=== PATIENT | male | born 1990 | race Caucasian/White ===

== ENCOUNTER 2018-05-19 08:58 | Emergency (ER) | payer OTHER ==
--- NOTE | 2018-05-19 09:18 | ED Physician Documentation ---
PD HPI NVD - Stated complaint Stated Complaint: VOMITING - Chief complaint Chief Complaint: Abd Pain - History obtained from History obtained from: Patient - History of Present Illness Timing - onset: Last night Review of Systems Constitutional: reports: Myalgias. denies: Fever, Chills Eyes: denies: Loss of vision, Decreased vision Nose: denies: Rhinorrhea / runny nose, Congestion Throat: denies: Oral lesions / sores, Sore throat PD PAST MEDICAL HISTORY - Past Medical History Cardiovascular: None Respiratory: None Neuro: None - Present Medications Home Medications: Ambulatory Orders Medication Instructions Recorded Confirmed Naproxen 375 mg PO BID #20 tablet 05/19/18 Ondansetron Odt [Zofran] 4 mg TL Q6H PRN #15 tablet 05/19/18 - Allergies Allergies/Adverse Reactions: Allergies Allergy/AdvReac Type Severity Reaction Status Date / Time No Known Drug Allergies Allergy Verified 05/19/18 09:11 - Family History Family history: reports: None - Immunizations Immunizations are current?: Yes Immunizations: TDAP current <10years PD ED PE NORMAL - Vitals Vital signs reviewed: Yes - General General: Alert and oriented X 3, No acute distress, Well developed/nourished - Extremities Extremities: Other (left DIP join) - Neuro Neuro: Alert and oriented X 3, flat polisher 2-12 intact, No motor deficit, No sensory deficit Eye Opening: Spontaneous Motor: Obeys Commands Verbal: Oriented GCS Score: 15 Results - Vitals Vitals: Oxygen O2 Source Room air PD MEDICAL DECISION MAKING - ED course Complexity details: re-evaluated patient (feeling much better with fluids and meds. ), considered differential (holding emesis bag and feeling nauseated still. ), d/w patient - Sepsis Event Vital Signs: Oxygen O2 Source Room air Departure - Departure Disposition: Home, Self Care Clinical Impression: Nausea vomiting and diarrhea, Dehydration Condition: Stable Record reviewed to determine appropriate education?: Yes Instructions: ED Nausea Vomiting Follow-Up: [facility] [Provider Group] Prescriptions: Naproxen 375 mg PO BID #20 tablet Ondansetron Odt [Zofran] 4 mg TL Q6H PRN #15 tablet PRN Reason: Nausea / Vomiting Comments: Abrupt nausea vomiting diarrhea like this typically area the food poisoning related or more commonly brief viral illness in the intestinal tract. Commonly they last a day or 2. Small frequent fluids and bland food today. Ondansetron if needed for nausea. Naproxen if needed for pains. Recheck if not better over the next day or 2. Forms: Activity restrictions Discharge Date/Time: 05/19/18 11:40
[2018-05-19] MEDS ORDERED: ONDANSETRON 4 MG/2 ML VIAL IVP STA (09:47)
[2018-05-19] MEDS ORDERED: KETOROLAC 60 MG/2 ML VIAL IVP STA (09:47)
[2018-05-19] MEDS ORDERED: FAMOTIDINE 20 MG/2 ML VIAL IVP STA (09:47)
[2018-05-19] MEDS ORDERED: SODIUM CHLORIDE 0.9% 1,000 ML IV ONE (09:47)
[2018-05-19 11:00] VITALS: BP 140/87
== END 2018-05-19 11:40 | disposition home or self-care (01) ==
LOC: ED 08:58
DX: R11.2 Nausea with vomiting, unspecified (principal); R19.7 Diarrhea, unspecified; E86.0 Dehydration
CPT/HCPCS: 96374; 96375; 99282; 99283

== ENCOUNTER 2018-08-09 08:15 | Emergency (ER) | payer OTHER ==
[2018-08-09 08:43] VITALS: BP 152/98
--- NOTE | 2018-08-09 09:00 | ED Physician Documentation ---
History of Present Illness - Stated complaint Stated Complaint: LEG NUMBNESS - Chief complaint Chief Complaint: General - History obtained from History obtained from: Patient - History of Present Illness Timing: Yesterday - Additonal information Additional information: 28-year-old male who had a coughing paroxysm yesterday that was quite hard developed acute pain in his right groin followed by numbness in the right anterior thigh and this extended down to the knee. He denies any numbness or tingling in his perineum he denies any difficulty with bowel or bladder. He has had stiff back before he does not believe this is related to the back at all. He does have coughing that happens periodically related to allergy or congestion. He is not having current URI symptoms. He states that he had a hard cough but because this pain the pain now is resolved he does not feel mass in the groin. Review of Systems Constitutional: denies: Fever Eyes: denies: Decreased vision Ears: denies: Ear pain Nose: denies: Congestion Throat: denies: Sore throat Cardiac: denies: Chest pain / pressure, Palpitations Respiratory: denies: Dyspnea, Cough GI: denies: Abdominal Pain, Nausea, Vomiting : denies: Dysuria, Frequency Skin: denies: Rash Musculoskeletal: reports: Extremity pain. denies: Neck pain, Back pain Neurologic: reports: Numbness (resolved). denies: Generalized weakness, Focal weakness PD PAST MEDICAL HISTORY - Past Medical History Cardiovascular: None Respiratory: None Neuro: None - Present Medications Home Medications: Ambulatory Orders Medication Instructions Recorded Confirmed Naproxen 375 mg PO BID #20 tablet 05/19/18 Ondansetron Odt [Zofran] 4 mg TL Q6H PRN #15 tablet 05/19/18 - Allergies Allergies/Adverse Reactions: Allergies Allergy/AdvReac Type Severity Reaction Status Date / Time No Known Drug Allergies Allergy Verified 05/19/18 09:11 - Immunizations Immunizations are current?: Yes Immunizations: TDAP current <10years PD ED PE NORMAL - Vitals Vital signs reviewed: Yes - General General: Alert and oriented X 3, No acute distress, Well developed/nourished - HEENT HEENT: Atraumatic, PERRL, EOMI, Ears normal, Moist mucous membranes, Pharynx benign, Dentition benign - Neck Neck: Supple, no meningeal sign, No bony TTP - Cardiac Cardiac: RRR, No murmur - Respiratory Respiratory: No respiratory distress, Clear bilaterally - Abdomen Abdomen: Soft, Non tender, Other (There is no hernia mass or tenderness this morning.) - Back Back: No CVA TTP, No spinal TTP - Derm Derm: Normal color, Warm and dry, No rash - Extremities Extremities: No deformity, No edema - Neuro Neuro: Alert and oriented X 3, football scout 2-12 intact, No motor deficit, No sensory deficit, Normal speech Eye Opening: Spontaneous Motor: Obeys Commands Verbal: Oriented GCS Score: 15 - Psych Psych: Normal mood, Normal affect Results - Vitals Vitals: Vital Signs - 24 hr 08/09/18 08:31 Temperature 36 C L Heart Rate 90 Respiratory 18 Rate Blood Pressure 152/98 H O2 Saturation 97 Oxygen O2 Source Room air PD MEDICAL DECISION MAKING - ED course Complexity details: reviewed results, considered differential, d/w patient ED course: 28-year-old male with a coughing paroxysm and what sounds like inguinal hernia strain that resulted in transient right leg symptoms has resolved his symptoms has no symptoms this morning and exam is unremarkable. I discussed with the patient the course of the femoral nerve and the signs and symptoms of incarceration of hernia and have asked him to follow-up with a surgeon should he have continued episodes of hernia pain or develops incarceration. Departure - Departure Disposition: 01 Home, Self Care Clinical Impression: Inguinal hernia Qualifiers: Obstruction and gangrene presence: without obstruction or gangrene Laterality: unilateral Recurrence: non-recurrent Qualified Code(s): K40.90 - Unilateral inguinal hernia, without obstruction or gangrene, not specified as recurrent Condition: Stable Instructions: ED Hernia Inguinal Follow-Up: [facility] [Provider Group]
== END 2018-08-09 09:12 | disposition home or self-care (01) ==
LOC: ED 08:15
DX: K40.90 Unilateral inguinal hernia, without obstruction or gangrene, not specified as recurrent (principal)
CPT/HCPCS: 99281; 99282

== ENCOUNTER 2018-12-30 21:47 | Emergency (ER) | payer OTHER ==
[2018-12-30 22:04] VITALS: BP 129/89
--- NOTE | 2018-12-30 22:04 | ED Physician Documentation ---
PD HPI LOWER EXT INJURY - Stated complaint Stated Complaint: RT FOOT PX - History obtained from History obtained from: Patient - History of Present Illness PD HPI LOW EXT INJURY LOCATION: Right, Foot Type of injury: Other (He has had couple of days of increasing localized pain and tenderness in the plantar aspect of the foot near the metatarsal heads. There is some slight redness and swelling to it today. It was tender enough to have difficulty walking on. He is not aware of an acute injury. He states [place] the [place] barefoot but was not aware of a foreign body at the time. He has not had any prior similar episodes.). No: Blunt / blow Timing - onset: How many days ago (Few) Timing - details: Gradual onset, Still present Worsened by: Palpating, Other (pressure of walking) Associated symptoms: Swelling (localized at the tender area). No: Tingling Similar symptoms before: Has not had sx before Recently seen: Not recently seen Review of Systems Constitutional: denies: Fever, Chills Neurologic: denies: Focal weakness, Numbness PD PAST MEDICAL HISTORY - Past Medical History Cardiovascular: None Respiratory: None Neuro: None - Past Surgical History Past Surgical History: No - Present Medications Home Medications: Ambulatory Orders Medication Instructions Recorded Confirmed Naproxen 375 mg PO BID #20 tablet 05/19/18 Ondansetron Odt [Zofran] 4 mg TL Q6H PRN #15 tablet 05/19/18 Sulfamethox/Trimeth 800/160 1 each PO BID #14 tablet 12/30/18 [Bactrim Ds 800/160] - Allergies Allergies/Adverse Reactions: Allergies Allergy/AdvReac Type Severity Reaction Status Date / Time No Known Drug Allergies Allergy Verified 12/30/18 22:03 - Social History Does the pt smoke?: No Smoking Status: Never smoker Does the pt drink ETOH?: Yes Does the pt have substance abuse?: No - Immunizations Immunizations are current?: Yes Immunizations: TDAP current <10years PD ED PE NORMAL - Vitals Vital signs reviewed: Yes - General General: Alert and oriented X 3, No acute distress, Well developed/nourished - Derm Derm: Normal color - Extremities Extremities: Other (The bottom of the right foot overlying the distal third metatarsal showed a skin area of tenderness and localized firmness. There is a white rounded area of thickening of the skin and marked tenderness. There is slight surrounding inflammation and minimal redness. There is no drainage. Light palpation over the area reveals a slight elevation that feels likely to be a small foreign body with some granulation tissue around it. The appearance of it almost looks like the central core of a corn. There is no raised aspect per se so does not look like a wart.) Results - Vitals Vitals: Vital Signs - 24 hr 12/30/18 22:02 Temperature 36.7 C Heart Rate 69 Respiratory 17 Rate Blood Pressure 129/89 H O2 Saturation 97 Oxygen O2 Source Room air PD MEDICAL DECISION MAKING - ED course Complexity details: considered differential (I think it likely that the patient has a small skin foreign body that is causing some localized induration and thickening of the skin consistent with an early corn or inclusion granuloma. There is no fluid or fluctuance. There is slight swelling and redness but I do not think it is abscess or early infection necessarily. There is a central to to 3 mm rounded area of white thickened skin with a center hole looking like a donut and a palpable feeling suggestive of a small foreign body. Let was used topically to allow some exploration at the skin layer. However he did feel little deeper and so a local anesthetic with 2% lidocaine was used using a TB syringe and needle. I was unable to use a scalpel tip to make a small core hole in the skin and it seems like I got a small hardened point of a foreign body suggestive of a small shard of glass. I could not feel any palpable firmness in the area anymore.), d/w patient Departure - Departure Disposition: 01 Home, Self Care Clinical Impression: Acute foreign body of plantar aspect of foot Qualifiers: Encounter type: initial encounter Laterality: right Qualified Code(s): S90.851A - Superficial foreign body, right foot, initial encounter Condition: Stable Record reviewed to determine appropriate education?: Yes Follow-Up: [facility] [Provider Group] Prescriptions: Sulfamethox/Trimeth 800/160 [Bactrim Ds 800/160] 1 each PO BID #14 tablet Comments: Think there is a small foreign body under the skin causing some local inflam mation and thickening of the skin which was very tender. See if it is out at this point and I believe it is. We also broke up the core of thick skin that was developing. This should help it get better. I do not think it is an early infection though if you do have increasing redness or swelling tomorrow or over the weekend, then start the antibiotics prescribed. Continue ibuprofen 2-3 times a day. Soak your foot tonight when you get home and again in the morning and warm water to improve blood flow to the area to help healing. This will help soften the skin as well. Recheck if not feeling better and then the skin healing over the next several days.
[2018-12-30] MEDS ORDERED: LIDOCAINE-EPINEPH-TETRACAINE 3 ML SYRINGE TOP STA (22:19)
== END 2018-12-30 23:20 | disposition home or self-care (01) ==
LOC: ED 21:47
DX: S90.851A Superficial foreign body, right foot, initial encounter (principal); W45.8XXA Other foreign body or object entering through skin, initial encounter
CPT/HCPCS: 99283

== ENCOUNTER 2019-12-25 05:02 | Emergency (ER) | payer OTHER ==
--- NOTE | 2019-12-25 05:06 | ED Physician Documentation ---
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 denies difficulty swallowing solids or liquids, denies drooling, denies any hx of head or neck surgery.) Review of Systems Ten Systems: 10 systems reviewed and negative Constitutional: reports: Reviewed and negative Eyes: reports: Reviewed and negative Ears: reports: Reviewed and negative Nose: reports: Reviewed and negative Throat: reports: Sore throat Cardiac: reports: Reviewed and negative Respiratory: reports: Reviewed and negative GI: reports: Reviewed and negative : reports: Reviewed and negative Skin: reports: Reviewed and negative Musculoskeletal: reports: Reviewed and negative Neurologic: reports: Reviewed and negative Psychiatric: reports: Reviewed and negative Endocrine: reports: Reviewed and negative Immunocompromised: reports: Reviewed and negative PD PAST MEDICAL HISTORY - Past Medical History Cardiovascular: None Respiratory: None Neuro: None Endocrine/Autoimmune: None GI: None : None HEENT: None Psych: None Musculoskeletal: None Derm: None - Past Surgical History Past Surgical History: No - Present Medications Home Medications: Ambulatory Orders Medication Instructions Recorded Confirmed No Known Home Medications 12/25/19 12/25/19 - Allergies Allergies/Adverse Reactions: Allergies Allergy/AdvReac Type Severity Reaction Status Date / Time No Known Drug Allergies Allergy Verified 12/30/18 22:03 - Social History Does the pt smoke?: No Smoking Status: Never smoker Does the pt drink ETOH?: Yes Does the pt have substance abuse?: No - Immunizations Immunizations are current?: Yes Immunizations: TDAP current <10years - POLST Patient has POLST: No PD ED PE NORMAL - Vitals Vital signs reviewed: Yes - General General: Alert and oriented X 3, No acute distress, Well developed/nourished - HEENT HEENT: Atraumatic, PERRL, Ears normal, Moist mucous membranes, Pharynx benign, Dentition benign, Other (OP with erythema, uvual midline, no exudates, normal voice, tolerating secretions, no ant/post cervical lad, no drooling. ) - Neck Neck: Supple, no meningeal sign, No adenopathy, No JVD - Cardiac Cardiac: RRR, No murmur, Strong equal pulses - Respiratory Respiratory: No respiratory distress, Clear bilaterally - Abdomen Abdomen: Normal bowel sounds, Soft, Non tender, Non distended, No organomegaly - Back Back: No CVA TTP, No spinal TTP - Derm Derm: Normal color, Warm and dry, No rash - Extremities Extremities: No deformity, No tenderness to palpate, Normal ROM s pain, No edema, No calf tenderness / cord - Neuro Neuro: Alert and oriented X 3, laundry routeman 2-12 intact, No motor deficit, No sensory deficit, Normal speech - Psych Psych: Normal mood, Normal affect Results - Vitals Vitals: Vital Signs - 24 hr 12/25/19 05:06 Temperature 36.3 C L Heart Rate 71 Respiratory 16 Rate Blood Pressure 146/86 H O2 Saturation 99 Oxygen O2 Source Room air - Labs Labs: Laboratory Tests 12/25/19 05:10 Group A Strep Rapid POSITIVE H PD MEDICAL DECISION MAKING - ED course Complexity details: re-evaluated patient (patient updated on results, reexamined, patient denies any hx of stds, denies any urethral discharge, testicular or groin pain. offered to treat with rocephin and azithro to cover for GC / chlamydia, however patient states that he denies any reason to believe he would have an std. will treat with penicillin for strep pharyngitis. ), considered differential (pharyngitis, rapid strep positive will treat with im benzathine penicillin g 1.2 million units IM once.) Departure - Departure Disposition: 01 Home, Self Care Clinical Impression: Strep pharyngitis Condition: Stable Instructions: ED Strep Pharyngitis Conf Follow-Up: your, doctor [Other] - 12/25/19 7:00 am Comments: go to medical/sick call at [facility] at 7 am today for a recheck.
[2019-12-25] MEDS ORDERED: IBUPROFEN 800 MG TABLET PO STA (05:13)
[2019-12-25 05:21] LABS: RAPID STREP SCREEN POSITIVE (Negative)
[2019-12-25] MEDS ORDERED: PENICILLIN G BENZATHINE 600,000 UNIT/ML SYRINGE IM STA (05:25)
[2019-12-25 06:05] VITALS: BP 153/106
== END 2019-12-25 06:05 | disposition home or self-care (01) ==
LOC: ED 05:02
DX: J02.0 Streptococcal pharyngitis (principal)
CPT/HCPCS: 87430; 96372; 99283; A9270

== ENCOUNTER 2021-03-26 08:00 | Outpatient (CLI) | payer OTHER | END 2021-03-26 08:01 | disposition home or self-care (01) | LOC: LAB.N 08:00 | PROVIDERS: ATTEND Emergency Medicine | DX: J00 Acute nasopharyngitis [common cold] (principal); R07.0 Pain in throat; Z20.822 Contact with and (suspected) exposure to COVID-19 ==

== ENCOUNTER 2021-09-29 08:00 | Outpatient (CLI) | payer OTHER | END 2021-09-29 23:59 | LOC: LAB.N 08:00 | PROVIDERS: ATTEND Emergency Medicine | DX: U07.1 COVID-19 (principal) ==

== ENCOUNTER 2022-01-12 17:09 | Emergency (ER) | payer OTHER ==
--- NOTE | 2022-01-12 19:34 | ED Physician Documentation ---
History of Present Illness - Stated complaint Stated Complaint: R EYE SWELLING - Chief complaint Chief Complaint: Heent - Additonal information Additional information: 31-year-old male presents to the emergency department for evaluation of acute right eye redness and watering. Mild pain but none significant. No falls or trauma. He denies any vision changes dust or debris. Review of Systems Constitutional: reports: Fever Eyes: reports: Discharge, Irritation. denies: Loss of vision, Decreased vision, Photophobia Ears: reports: Reviewed and negative Nose: reports: Reviewed and negative Throat: reports: Reviewed and negative PD PAST MEDICAL HISTORY - Past Medical History Cardiovascular: None Respiratory: Asthma Neuro: None Endocrine/Autoimmune: None GI: None : None HEENT: None Psych: None Musculoskeletal: None Derm: None - Past Surgical History Past Surgical History: No General: Appendectomy HEENT: Tonsil/Adenoidectomy - Present Medications Home Medications: Ambulatory Orders Medication Instructions Recorded Confirmed prednisoLONE 1% OPHTH DROPS [Pred 1 drops RIGHTEYE QID 7 Days #5 ml 01/12/22 Forte 1% Ophth Drops] - Allergies Allergies/Adverse Reactions: Allergies Allergy/AdvReac Type Severity Reaction Status Date / Time No Known Drug Allergies Allergy Verified 01/12/22 17:17 - Social History Does the pt smoke?: No Smoking Status: Never smoker Does the pt drink ETOH?: Yes Does the pt have substance abuse?: No - Immunizations Immunizations are current?: Yes Immunizations: TDAP current <10years - POLST Patient has POLST: No PD ED PE EXPANDED - General General: Alert, No acute distress, Well developed/nourished - Eyes Eyes: No eyelid FB (everted), Injected conj/sclera, Exudate, Other (Right is erythematous with clear watery drainage. Pupils briskly reactive bilaterally. Extraocular movements intact. No eyelid swelling or erythema. Right IJ tunnel pressure 23 with 95% confidence interval. Left IJ tunnel pressure 18 with 95% confidence interval). No: Eyelid swelling, Eyelid erythema, Subconj hemorrhage, Ant chamber cells/flare, Papilledema Results - Vitals Vitals: Vital Signs - 24 hr 01/12/22 17:15 Temperature 36.4 C L Heart Rate 97 Respiratory 16 Rate O2 Saturation 95 Oxygen O2 Source Room air PD MEDICAL DECISION MAKING - ED course Complexity details: reviewed results, re-evaluated patient, d/w patient, d/w workforce management consultant (Dr. Lama) ED course: 31-year-old male presents emergency department for evaluation of acute mildly painful right red eye. Symptoms began this morning when he woke up. He has had fair amount of clear tearing today. He did undergo cardiac surgery with Dr. Lama on December 18. He initially used red eye relief drops with some improvement in symptoms but as the afternoon has worn on they have returned and worsened thus he comes to the emergency department. No fevers. No loss of vision. I did discuss this case with Dr. Lama who had Done the initial surgery. Based on my description of the findings he is suspicious that the patient has developed a mild iritis. Would recommend prednisolone eyedrops 4 times daily for 1 week. He does not feel the patient needs to be started on atenolol given the mildly elevated pressures. Patient will call the clinic for follow-up in 7 to 10 days emergent return precautions otherwise discussed. Departure - Departure Disposition: 01 Home, Self Care Clinical Impression: Acute iritis, right eye Condition: Stable Record reviewed to determine appropriate education?: Yes Instructions: ED Iritis Prescriptions: prednisoLONE 1% OPHTH DROPS [Pred Forte 1% Ophth Drops] 1 drops RIGHTEYE QID 7 Days #5 ml Comments: Kelvin you are seen today for redness and tearing in your right eye. Looks like you have a condition called iritis which is inflammation of one of the layers of the eye. This can be common after cataract surgery. In order to treat it please fill the prescription for the prednisolone eyedrops. Place 1 drop in your right eye 4 times a day for [address] Lama's office to arrange follow-up for next week when he returns from vacation. If between now and then you have increased pain or any loss of vision call the office for sooner follow-up with his colleague.
[2022-01-12 20:43] VITALS: BP 141/69
== END 2022-01-12 20:42 | disposition home or self-care (01) ==
LOC: ED 17:09
DX: H20.00 Unspecified acute and subacute iridocyclitis (principal)
CPT/HCPCS: 99282

== ENCOUNTER 2023-03-29 17:15 | Outpatient (CLI) | payer OTHER ==
[2023-03-29 23:16] LABS: NEISSERIA GONORRHOEAE DNA NEGATIVE (NEGATIVE); TRICHOMONAS VAGINALIS DNA NEGATIVE (NEGATIVE)
[2023-03-29 23:36] LABS: CHLAMYDIA TRACHOMATIS DNA POSITIVE (NEGATIVE)
[2023-03-31 02:08] LABS: HCV AB Non Reactive (Non Reactive); HIV SCREEN 4TH GENERATION Non Reactive (Non Reactive)
[2023-03-31 08:11] LABS: HSV 2 IGG TYPE SPEC <0.91 index (0.00-0.90); RPR Non Reactive (Non Reactive)
== END 2023-03-29 17:30 | disposition home or self-care (01) ==
LOC: LAB.N 17:15
PROVIDERS: ATTEND Registered Nurse
DX: Z20.2 Contact with and (suspected) exposure to infections with a predominantly sexual mode of transmission (principal)
CPT/HCPCS: 36415; 86592; 86695; 86696; 86803; 87389; 87491; 87591; 87661

== ENCOUNTER 2023-04-27 16:30 | Emergency (ER) | payer OTHER ==
--- NOTE | 2023-04-27 16:42 | ED Physician Documentation ---
PD HPI BACK PAIN - Stated complaint Stated Complaint: BACK PX - Chief complaint Chief Complaint: Back Pain - History obtained from History obtained from: Patient - History of Present Illness Timing - onset: How many hours ago (1), Today Timing - duration: Hours (1) Timing - details: Abrupt onset, Still present Location: Mid, Left (Medial scapular area on the left) Quality: Pain, Spasm Associated symptoms: No: Weakness, Numbness Contributing factors: Lifting (He was lifting heavy weights lifting from the floor at the gym. He states he was starting to feel fatigued and as he lifted he did not straighten his back well and felt a abrupt pain in the medial scapular area. Hurts to move and deep breath. No dyspnea per se.) Similar symptoms before: Has not had sx before Review of Systems Musculoskeletal: reports: Back pain (onset today). denies: Neck pain Neurologic: denies: Focal weakness, Numbness PD PAST MEDICAL HISTORY - Past Medical History Cardiovascular: None Respiratory: Asthma Neuro: None Endocrine/Autoimmune: None GI: None : None HEENT: None Psych: None Musculoskeletal: None Derm: None - Past Surgical History Past Surgical History: No General: Appendectomy HEENT: Tonsil/Adenoidectomy - Present Medications Home Medications: Ambulatory Orders Medication Instructions Recorded Confirmed HYDROcod/ACETAM 5/325 [[place] 5/325] 1 ea PO Q8H PRN #8 tablet 04/27/23 Ibuprofen [Motrin] 600 mg PO TID PRN #25 tab 04/27/23 methocarbamoL [Robaxin] 500 mg PO Q6H PRN #20 tablet 04/27/23 - Allergies Allergies/Adverse Reactions: Allergies Allergy/AdvReac Type Severity Reaction Status Date / Time No Known Drug Allergies Allergy Verified 04/27/23 16:36 - Social History Does the pt smoke?: No Smoking Status: Never smoker Does the pt drink ETOH?: Yes Does the pt have substance abuse?: No - Immunizations Immunizations are current?: Yes Immunizations: TDAP current <10years - POLST Patient has POLST: No PD ED PE NORMAL - Vitals Vital signs reviewed: Yes - General General: Alert and oriented X 3, Well developed/nourished, Other (holding upper body and neck stiffly to reduce thoracic movement. ) - Respiratory Respiratory: No respiratory distress, Clear bilaterally - Back Back: No spinal TTP (He is focally tender in the medial scapular area on the left adjacent to approximately T6 or 7. Not tender on the spine itself.) - Derm Derm: Normal color, Warm and dry Results - Vitals Vitals: Vital Signs - 24 hr 04/27/23 16:31 Temperature 36.5 C Heart Rate 91 Respiratory 18 Rate Blood Pressure 159/83 H O2 Saturation 99 Oxygen O2 Source Room air PD Medical Decision Making - ED course Complexity details: considered differential (Mechanism of a lift of a heavy weight would suggest strain of the muscles or ligaments around the scapula/rhomboids. Mechanism would not be consistent with disc or compression fractures as a vertical load would be. We will treat as a muscle strain with medication and also local trigger point.), d/w patient ED course: trigger point muscle injection at medial scapular muscle tnder focus with lidocaine 2 ml and Kenalog 1 ml without problems. Departure - Departure Disposition: 01 Home, Self Care Clinical Impression: Acute thoracic myofascial strain Qualifiers: Encounter type: initial encounter Qualified Code(s): S29.019A - Strain of muscle and tendon of unspecified wall of thorax, initial encounter Condition: Stable Record reviewed to determine appropriate education?: Yes Prescriptions: Ibuprofen [Motrin] 600 mg PO TID PRN #25 tab PRN Reason: Pain HYDROcod/ACETAM 5/325 [[place] 5/325] 1 ea PO Q8H PRN #8 tablet PRN Reason: Pain methocarbamoL [Robaxin] 500 mg PO Q6H PRN #20 tablet PRN Reason: Spasms Comments: Mechanism of injury would be consistent with a muscle strain or pull as is the area of tenderness and pain. We can treat this with some ice or cool towels to the area this evening for swelling and then perhaps heat to the area tomorrow for stiffness and spasms. Otherwise you can try heat or cold and see which works better for you. We did do an injection at the muscle area with some anti-inflammatory. He can also take oral medications of ibuprofen anti-inflammatory and Robaxin muscle relaxant. Add Tylenol every 4-6 hours as needed for pain. Hydrocodone if needed for worse pain very short term. Light activity with the shoulder and upper back with no heavy lifting, push pull, overhead reaching for a few days until improving. Progress use and activity as tolerated after that but I would avoid heavy lifting such as working out as you do on the upper body for perhaps a week or so. Stretching and light use it would be okay. I sent prescriptions for some medications to your preferred pharmacy, [facility]. My narcotic instructions. I am prescribing a short course of narcotic pain medication for you. These are potentially dangerous and addictive medications that should be used carefully. These medications may constipate you. Take an mbya-pjb-oxkyaif stool softener such as docusate twice daily with plenty of water while taking these medications. If you go 24 hours without a bowel movement, take uvgk-omn-jhawfne MiraLAX, per package instructions. Do not drink or drive while taking these medications. If you received narcotic or sedating medications while in the emergency department do not drive for 24 hours. Store this medication in a safe, secure place and out of reach of children. It is a violation of federal law to give or sell this medication to another person or to use in a manner other than prescribed. The ED will not refill narcotic prescriptions, including prescriptions lost or stolen. You can dispose of unwanted medications at the [facility]'s office or at several pharmacies such as [facility]. Forms: Activity restrictions
[2023-04-27 16:43] VITALS: BP 159/83; O2SAT 99
[2023-04-27] MEDS ORDERED: HYDROcod/ACETAM 5/325 MG TABLET PO STA (16:51)
[2023-04-27] MEDS ORDERED: LIDOCAINE 1%-EPI 1:100000 20 ML MDV SUBQ STA (16:51)
[2023-04-27] MEDS ORDERED: IBUPROFEN 800 MG TABLET PO STA (16:52)
[2023-04-27] MEDS ORDERED: methocarbamoL 500 MG TABLET PO STA (16:52)
[2023-04-27] MEDS ORDERED: TRIAMCINOLONE 40 MG/ML VIAL MC STA (16:52)
[2023-04-27] MEDS ORDERED: LIDOCAINE 1% 2 ML VIAL SUBQ STA (17:07)
[2023-04-27] MEDS ORDERED: LIDOCAINE 1% 2 ML VIAL ONE (17:11)
== END 2023-04-27 17:17 | disposition home or self-care (01) ==
LOC: ED 16:30
DX: S29.012A Strain of muscle and tendon of back wall of thorax, initial encounter (principal); X50.0XXA Overexertion from strenuous movement or load, initial encounter; Y93.B3 Activity, free weights
CPT/HCPCS: 20552; 99283; A9270

== ENCOUNTER 2023-06-01 16:42 | Emergency (ER) | payer OTHER ==
--- OUTSIDE RECORDS SUMMARY | 2023-06-01 17:03 | EXTERNAL MEDICAL SUMMARY RPT | Continuity of Care Document ---
Author Name Unknown Address [address] [place] [address] Phone Organization [place] [facility] Address [address] [place] [address] Phone Care Team Providers Care Cut Out Operator Name Role Phone Olga Greenfield Unavailable Unavailable Allergies and Intolerances date description facility reaction severity (no date) No Known Drug Allergies [facility] (no estefanía ction) (no severity) Medications date description facility 2023-05-11 00:00 Cyclobenzaprine [facility] 2023-05-11 00:00 Hydrocodone-Acetaminophen [facility] Problems date description facility 2023-05-11 00:00 Back pain due to injury [facility] Results/Labs test date facility value unit notes Social History date description facility 2023-05-11 00:00 Never smoked tobacco (finding) [facility] Vital Signs date measurement value units 2023-05-11 00:00 BMI 27.1 kg/m2 2023-05-11 00:00 BP_diastolic 96 mmHg 2023-05-11 00:00 BP_systolic 155 mmHg 2023-05-11 00:00 heart_rate 80 /min 2023-05-11 00:00 height_metric 182.88 cm 2023-05-11 00:00 height_standard 72 in 2023-05-11 00:00 o2_saturation 99 % 2023-05-11 00:00 respiration_rate 16 /min 2023-05-11 00:00 temperature_metric 37.11 C 2023-05-11 00:00 temperature_standard 98.8 F 2023-05-11 00:00 weight_metric 90.71 kg 2023-05-11 00:00 weight_standard 199.98 lb
[2023-06-01 17:07] VITALS: BP 162/115; O2SAT 99
--- NOTE | 2023-06-01 17:32 | ED Physician Documentation ---
History of Present Illness - Stated complaint Stated Complaint: BACK PX - Chief complaint Chief Complaint: Back Pain - History obtained from History obtained from: Patient - History of Present Illness Timing: Today Pain level max: 6 Pain level now: 6 - Additonal information Additional information: 33-year-old male presents to the emergency department with left trapezius pain. This started while lifting weights tonight. Worse with movement, nothing makes it better. States the pain radiates down the left arm. No numbness or tingling. No head injury. No neck or back pain. No loss of bowel or bladder control. Review of Systems Constitutional: denies: Fever, Chills GI: denies: Vomiting, Diarrhea Skin: denies: Rash PD PAST MEDICAL HISTORY - Past Medical History Cardiovascular: None Respiratory: Asthma Neuro: None Endocrine/Autoimmune: None GI: None : None HEENT: None Psych: None Musculoskeletal: None Derm: None - Past Surgical History Past Surgical History: No General: Appendectomy HEENT: Tonsil/Adenoidectomy - Present Medications Home Medications: Ambulatory Orders Medication Instructions Recorded Confirmed Cyclobenzaprine [Flexeril] 10 mg PO TID PRN #20 tablet 06/01/23 HYDROcod/ACETAM 5/325 [[place] 5/325] 1 - 2 ea PO Q6H PRN #14 tablet 06/01/23 Ibuprofen [Motrin] 800 mg PO Q8H PRN #30 tablet 06/01/23 - Allergies Allergies/Adverse Reactions: Allergies Allergy/AdvReac Type Severity Reaction Status Date / Time No Known Drug Allergies Allergy Verified 06/01/23 16:48 - Social History Does the pt smoke?: No Smoking Status: Never smoker Does the pt drink ETOH?: Yes Does the pt have substance abuse?: No - Immunizations Immunizations are current?: Yes Immunizations: TDAP current <10years - POLST Patient has POLST: No PD ED PE NORMAL - Vitals Vital signs reviewed: Yes - General General: Alert and oriented X 3, No acute distress - HEENT HEENT: Moist mucous membranes - Neck Neck: Supple, no meningeal sign, No bony TTP (No midline tenderness to palpation. No step-off or deformity) - Cardiac Cardiac: RRR - Respiratory Respiratory: No respiratory distress, Clear bilaterally - Back Back: No spinal TTP (No midline tenderness to palpation. No step-off or deformity) - Derm Derm: Warm and dry - Extremities Extremities: Other (There is swelling to the left trapezial ridge. Tenderness present at the site. No visible bruising. There is no bony tenderness along the clavicle, scapula or glenohumeral joint. Neurovascular intact including the left upper extremity and axillary nerve.) - Neuro Neuro: Alert and oriented X 3, jr. systems administrator 2-12 intact, No motor deficit, No sensory deficit, Normal speech Results - Vitals Vitals: Vital Signs - 24 hr 06/01/23 16:48 Temperature 36.6 C Heart Rate 92 Respiratory 16 Rate Blood Pressure 162/115 H O2 Saturation 99 Oxygen O2 Source Room air PD Medical Decision Making - ED course Complexity details: considered differential, d/w patient ED course: Patient with what appears to be a strain/tear of the left trapezial ridge. Possible intramuscular hematoma as well. Placed in a sling for comfort. I will prescribe pain medication, anti-inflammatory medications and muscle relaxants for home. He has had Flexeril in the past which worked well for him. Patient is right-handed. [place] No indication for x-rays tonight. Patient counseled regarding signs and symptoms for which I believe and urgent re-evaluation would be necessary. Patient with good understanding of and agreement to plan and is comfortable going home at this time This document was made in part using voice recognition software. While efforts are made to proofread this document, sound alike and grammatical errors may occur. Departure - Departure Disposition: 01 Home, Self Care Clinical Impression: Trapezius muscle strain Qualifiers: Encounter type: initial encounter Laterality: left Qualified Code(s): S46.812A - Strain of other muscles, fascia and tendons at shoulder and upper arm level, left arm, initial encounter Condition: Good Instructions: ED Strain Muscle Ext Follow-Up: TONG ALTMAN MD [Primary Care Provider] - Within 1 week Prescriptions: Cyclobenzaprine [Flexeril] 10 mg PO TID PRN #20 tablet PRN Reason: Spasms Ibuprofen [Motrin] 800 mg PO Q8H PRN #30 tablet PRN Reason: PAIN &/OR FEVER HYDROcod/ACETAM 5/325 [[place] 5/325] 1 - 2 ea PO Q6H PRN #14 tablet PRN Reason: Pain Comments: Your prescriptions were sent to [facility] in [place]. Please follow-up with your doctor for further care. You can use the sling as needed for comfort. Please continue to gently range your shoulder at home starting tomorrow. You will be very sore for the next few days. Please ice the shoulder tonight at home as well. I am prescribing a short course of narcotic pain medication for you. These are potentially dangerous and addictive medications that should be used carefully. These medications may constipate you. Take an jctw-mbo-cedcswc stool softener (docusate) twice daily with plenty of water while taking these medications. If you go 24 hours without a bowel movement, take cnvg-cbz-wtiqgcv miralax, per package instructions. Do not drink or drive while taking these medications. If you received narcotic or sedating medications while in the emergency department, do not drive for 24 hours. Store this medication in a safe, secure place and out of reach of children. It is a violation of federal law to give or sell this medication to another person or to use in a manner other than prescribed. The ED will not refill narcotic prescriptions, including prescriptions lost or stolen. To dispose of unwanted medications: 1. [facility] [address] in [place] has a medication drop box. They accept prescription medications (in pill form) Wednesday through Wednesday 9:00 a.m. to 5:00 p.m. 2. The [facility] Department accepts prescription medications (in pill form only) for disposal year round. Call for more information. 3. Contact the [facility] for the next [facility] sponsored prescription drug collection event. , [phone], or [phone]; Discharge Date/Time: 06/01/23 17:49
[2023-06-01] MEDS: CYCLOBENZAPRINE 10 MG TABLET PO STA (17:40)
[2023-06-01] MEDS: HYDROcod/ACETAM 5/325 MG TABLET PO STA (17:40)
[2023-06-01] MEDS: KETOROLAC 60 MG/2 ML VIAL IM STA (17:41)
== END 2023-06-01 17:49 | disposition home or self-care (01) ==
LOC: ED 16:42
DX: S46.812A Strain of other muscles, fascia and tendons at shoulder and upper arm level, left arm, initial encounter (principal); X58.XXXA Exposure to other specified factors, initial encounter; Y93.B9 Activity, other involving muscle strengthening exercises
CPT/HCPCS: 96372; 99282; 99283; A9270

== ENCOUNTER 2023-07-21 18:06 | Emergency (ER) | payer OTHER ==
[2023-07-21] MEDS ORDERED: CYCLOBENZAPRINE 10 MG TABLET PO STA (20:30)
[2023-07-21] MEDS ORDERED: oxyCODONE 5 MG TABLET PO STA (20:30)
--- NOTE | 2023-07-21 20:38 | ED Physician Documentation ---
History of Present Illness - Stated complaint Stated Complaint: NECK/BACK PX - Chief complaint Chief Complaint: General - History obtained from History obtained from: Patient - History of Present Illness Timing: Today Pain level max: 7 Pain level now: 7 - Additonal information Additional information: 33-year-old male has been battling a left rhomboid/thoracic myofascial strain for the past several months. Reinjures that whenever he begins to lift again. He was at lifting again tonight and felt increased pain. Worse with movement, better with rest. No fevers. No chills. No other injuries. No midline back pain. Has had x-rays that were normal. Review of Systems Constitutional: denies: Fever, Chills GI: denies: Vomiting, Diarrhea Skin: denies: Rash Musculoskeletal: denies: Neck pain Neurologic: denies: Headache PD PAST MEDICAL HISTORY - Past Medical History Cardiovascular: None Respiratory: Asthma Neuro: None Endocrine/Autoimmune: None GI: None : None HEENT: None Psych: None Musculoskeletal: None Derm: None - Past Surgical History Past Surgical History: No General: Appendectomy HEENT: Tonsil/Adenoidectomy - Present Medications Home Medications: Ambulatory Orders Medication Instructions Recorded Confirmed Ibuprofen [Motrin] 800 mg PO Q8H PRN #30 tablet 06/01/23 07/21/23 Cyclobenzaprine [Flexeril] 10 mg PO TID PRN #20 tablet 07/21/23 HYDROcod/ACETAM 5/325 [[place] 5/325] 1 - 2 ea PO Q6H PRN #14 tablet 07/21/23 Ketorolac [Toradol] 10 mg PO Q6H PRN #20 tablet 07/21/23 - Allergies Allergies/Adverse Reactions: Allergies Allergy/AdvReac Type Severity Reaction Status Date / Time No Known Drug Allergies Allergy Verified 06/01/23 16:48 - Social History Does the pt smoke?: No Smoking Status: Never smoker Does the pt drink ETOH?: Yes Does the pt have substance abuse?: No - Immunizations Immunizations are current?: Yes Immunizations: TDAP current <10years - POLST Patient has POLST: No PD ED PE NORMAL - Vitals Vital signs reviewed: Yes - General General: Alert and oriented X 3, No acute distress - HEENT HEENT: Moist mucous membranes - Neck Neck: Supple, no meningeal sign - Cardiac Cardiac: RRR, Strong equal pulses - Respiratory Respiratory: No respiratory distress, Clear bilaterally - Abdomen Abdomen: Soft, Non tender, Non distended - Derm Derm: Warm and dry - Extremities Extremities: Other (Tender to palpation over the left rhomboid area. Reproduces his pain. Spasm at the site. Otherwise normal examination of the back.) - Neuro Neuro: Alert and oriented X 3 - Psych Psych: Normal mood, Normal affect Results - Vitals Vitals: Vital Signs - 24 hr 07/21/23 07/21/23 07/21/23 18:15 19:51 20:43 Temperature 37 C 36.4 C L Heart Rate 98 79 Respiratory 16 17 17 Rate Blood Pressure 161/96 H 175/110 H O2 Saturation 96 97 Oxygen O2 Source Room air PD Medical Decision Making - ED course Complexity details: reviewed old records, considered differential, d/w patient ED course: 33-year-old male with an acute on chronic rhomboid strain/myofascial strain. We will place on pain medication muscle relaxants for home. Recommend that he follow-up with physical therapy, possible physiatry. He will need to take an extended break from lifting heavy weights to avoid reinjuring the area. [place]. Patient counseled regarding signs and symptoms for which I believe and urgent re-evaluation would be necessary. Patient with good understanding of and agreement to plan and is comfortable going home at this time This document was made in part using voice recognition software. While efforts are made to proofread this document, sound alike and grammatical errors may occur. Departure - Departure Disposition: 01 Home, Self Care Clinical Impression: Acute thoracic myofascial strain Qualifiers: Encounter type: initial encounter Qualified Code(s): S29.019A - Strain of muscle and tendon of unspecified wall of thorax, initial encounter Condition: Good Instructions: ED Neck Back Pain General Follow-Up: [facility] [Provider Group] [facility] [Provider Group] Prescriptions: Cyclobenzaprine [Flexeril] 10 mg PO TID PRN #20 tablet PRN Reason: Spasms HYDROcod/ACETAM 5/325 [[place] 5/325] 1 - 2 ea PO Q6H PRN #14 tablet PRN Reason: Pain Ketorolac [Toradol] 10 mg PO Q6H PRN #20 tablet PRN Reason: back pain Comments: As we discussed, these myofascial strains can take weeks to months to heal. At this point given the multiple reinjuries that have occurred, you would benefit from physical therapy. This referral will have to be placed by [facility]. You may benefit from seeing a game protector as well. These are physical medicine and rehabilitation physicians. There are physiatrists at [facility] in [facility]. Alternatively a sports medicine orthopedist may help as well. When you are returning to exercise, you will need to start very light and gradually increase your weight over time to avoid reinjury. [facility] [place]. Please follow-up with your doctor for further care. I am prescribing a short course of narcotic pain medication for you. These are potentially dangerous and addictive medications that should be used carefully. These medications may constipate you. Take an ehsr-diz-ewknoor stool softener (docusate) twice daily with plenty of water while taking these medications. If you go 24 hours without a bowel movement, take pczj-rqu-xhziuyh miralax, per package instructions. Do not drink or drive while taking these medications. If you received narcotic or sedating medications while in the emergency department, do not drive for 24 hours. Store this medication in a safe, secure place and out of reach of children. It is a violation of federal law to give or sell this medication to another person or to use in a manner other than prescribed. The ED will not refill narcotic prescriptions, including prescriptions lost or stolen. To dispose of unwanted medications: 1. [facility] at [address] in [place] has a medication drop box. They accept prescription medications (in pill form) Wednesday through Wednesday 9:00 a.m. to 5:00 p.m. 2. The [facility] Police Department accepts prescription medications (in pill form only) for disposal year round. Call for more information. 3. Contact the [facility] for the next [facility] sponsored prescription drug collection event. , [phone], or [phone]; Forms: PCP List Discharge Date/Time: 07/21/23 21:04
[2023-07-21 20:51] VITALS: BP 175/110; O2SAT 97
== END 2023-07-21 21:04 | disposition home or self-care (01) ==
LOC: ED 18:06
DX: S29.019A Strain of muscle and tendon of unspecified wall of thorax, initial encounter (principal); X58.XXXA Exposure to other specified factors, initial encounter; Y93.B9 Activity, other involving muscle strengthening exercises
CPT/HCPCS: 99282; 99283; A9270

== ENCOUNTER 2024-01-10 11:15 | Outpatient (CLI) | payer OTHER ==
[2024-01-10 23:26] LABS: CHLAMYDIA TRACHOMATIS DNA NEGATIVE (NEGATIVE); NEISSERIA GONORRHOEAE DNA NEGATIVE (NEGATIVE); TRICHOMONAS VAGINALIS DNA NEGATIVE (NEGATIVE)
[2024-01-11 05:12] LABS: HIV SCREEN 4TH GENERATION Non Reactive (Non Reactive)
[2024-01-11 06:10] LABS: RPR Non Reactive (Non Reactive)
== END 2024-01-10 11:30 | disposition home or self-care (01) ==
LOC: LAB.N 11:15
PROVIDERS: ATTEND Physician Assistant
DX: Z20.2 Contact with and (suspected) exposure to infections with a predominantly sexual mode of transmission (principal)
CPT/HCPCS: 36415; 86592; 86803; 87389; 87491; 87591; 87661

== ENCOUNTER 2024-01-24 16:32 | Emergency (ER) | payer OTHER ==
[2024-01-24 16:40] VITALS: BP 167/99; O2SAT 98
--- NOTE | 2024-01-24 17:05 | XRAY Report ---
PROCEDURE: Ankle 3+V RT INDICATIONS: injury during weightlifting TECHNIQUE: 3 views of the ankle were acquired. COMPARISON: None. FINDINGS: Bones: No fractures or dislocations. Ankle mortise is normally aligned. No suspicious bony lesions . Soft tissues: No tibiotalar joint effusion. Achilles tendon appears normal. IMPRESSION: No acute bony abnormality. If pain persists with conservative management, consider repeat x-ray in 10 -14 days or cross-sectional imaging. Reviewed by: Adrian Real MD on 01/24/2024 5:04 PM PDT Approved by: Adrian Real MD on 01/24/2024 5:04 PM PDT Station ID: [id number]
--- NOTE | 2024-01-24 17:18 | ED Physician Documentation ---
PD HPI LOWER EXT INJURY - Stated complaint Stated Complaint: R FOOT INJ - Chief complaint Chief Complaint: Ext Problem - History obtained from History obtained from: Patient - Additional information Additional information: Patient is a 33-year-old male, active [employer] [place], presenting for evaluation of right ankle pain. Patient states that he was doing a leg press with a large amount of weight (540 pounds) when he went to shift his leg position as he already had the weights up and felt pain in the right ankle. He has been able to ambulate but it is painful. Denies injuries elsewhere. Review of Systems Musculoskeletal: reports: Extremity pain PD PAST MEDICAL HISTORY - Past Medical History Cardiovascular: None Respiratory: Asthma Neuro: None Endocrine/Autoimmune: None GI: None : None HEENT: None Psych: None Musculoskeletal: None Derm: None - Past Surgical History Past Surgical History: No General: Appendectomy HEENT: Tonsil/Adenoidectomy - Present Medications Home Medications: Ambulatory Orders Medication Instructions Recorded Confirmed Ibuprofen [Motrin] 800 mg PO Q8H PRN #30 tablet 06/01/23 07/21/23 Cyclobenzaprine [Flexeril] 10 mg PO TID PRN #20 tablet 07/21/23 HYDROcod/ACETAM 5/325 [[place] 5/325] 1 - 2 ea PO Q6H PRN #14 tablet 07/21/23 Ketorolac [Toradol] 10 mg PO Q6H PRN #20 tablet 07/21/23 - Allergies Allergies/Adverse Reactions: Allergies Allergy/AdvReac Type Severity Reaction Status Date / Time No Known Drug Allergies Allergy Verified 01/24/24 16:39 - Social History Does the pt smoke?: No Smoking Status: Never smoker Does the pt drink ETOH?: Yes Does the pt have substance abuse?: No - Immunizations Immunizations are current?: Yes Immunizations: TDAP current <10years - POLST Patient has POLST: No PD ED PE NORMAL - General General: Alert and oriented X 3, No acute distress, Well developed/nourished - HEENT HEENT: Atraumatic - Cardiac Cardiac: Strong equal pulses - Respiratory Respiratory: No respiratory distress - Extremities Extremities: No deformity, Other (Tenderness to right lateral and posterior ankle, Able to plantar and dorsiflex, no defect palpated over Achilles tendon, no calf tenderness on palpation, compartments of extremity are soft, normal range of motion at right knee) Results - Vitals Vitals: Vital Signs - 24 hr 01/24/24 16:37 Temperature 36.7 C Heart Rate 93 Respiratory 16 Rate Blood Pressure 167/99 H O2 Saturation 98 Oxygen O2 Source Room air PD Medical Decision Making - ED course Complexity details: reviewed results, d/w patient ED course: Patient is a 33-year-old male with injury to his right ankle as he was doing a heavy weight on the leg press. No visible deformities. Neurovascularly intact with no signs of palpable defect on the Achilles. He is able to plantar and dorsiflex although does report pain. X-ray was obtained of the ankle which I reviewed I see no fracture or dislocation. Will place an Aircast and give crutches. Patient counseled on trial of supportive care and close follow-up at [facility]. Departure - Departure Disposition: 01 Home, Self Care Clinical Impression: Right ankle injury Condition: Stable Instructions: ED Sprain Ankle Follow-Up: LEO Maldonado [Provider Group] Comments: Your x-ray does not show a fracture or dislocation. At this time we also do not see signs of a tendon rupture. I would recommend using the Aircast as well as crutches, anti-inflammatory such as acetaminophen, ice and elevation. I would recommend follow-up at [facility]. You may need repeat imaging if your symptoms or not improving over the course of the next 7 to 10 days. Forms: PCP List, Activity restrictions
[2024-01-24] MEDS: HYDROcod/ACETAM 5/325 MG TABLET PO STA (17:22)
== END 2024-01-24 17:25 | disposition home or self-care (01) ==
LOC: ED 16:32
DX: S99.911A Unspecified injury of right ankle, initial encounter (principal); X50.9XXA Other and unspecified overexertion or strenuous movements or postures, initial encounter; J45.909 Unspecified asthma, uncomplicated
CPT/HCPCS: 73610; 99283; A9270

== ENCOUNTER 2024-02-11 13:03 | Emergency (ER) | payer OTHER ==
[2024-02-11 13:51] VITALS: BP 179/98; O2SAT 98
--- NOTE | 2024-02-11 14:37 | XRAY Report ---
PROCEDURE: Ankle 3+V RT INDICATIONS: Trauma TECHNIQUE: 3 views of the ankle were acquired. COMPARISON: 01/24/2024. FINDINGS: Bones: Tiny osseous fragment adjacent to the anterior aspect of the distal tibia.. Ankle mortise is normally aligned. No suspicious bony lesions. Soft tissues: No tibiotalar joint effusion. Achilles tendon appears normal. IMPRESSION: Tiny osseous fragment adjacent to the anterior aspect of the distal tibia, small avulsion fracture is not excluded. Reviewed by: Adrian Real MD on 02/11/2024 2:36 PM PDT Approved by: Adrian Real MD on 02/11/2024 2:36 PM PDT Station ID: [id number]
--- NOTE | 2024-02-11 14:43 | ED Physician Documentation ---
PD HPI LOWER EXT INJURY - Stated complaint Stated Complaint: RT FOOT INJ - Chief complaint Chief Complaint: Trauma Ext - History obtained from History obtained from: Patient - Additional information Additional information: INJURED R ANKLE 2 WEEKS AGO WEIGHTLIFTING, NEG XR THEN. FELL DOWN STAIRS TODAY AND PAIN MUCH WORSE. HAS APPT FOR MRI NEXT WEEK. PD PAST MEDICAL HISTORY - Past Medical History Cardiovascular: None Respiratory: Asthma Neuro: None Endocrine/Autoimmune: None GI: None : None HEENT: None Psych: None Musculoskeletal: None Derm: None - Past Surgical History Past Surgical History: No General: Appendectomy HEENT: Tonsil/Adenoidectomy - Present Medications Home Medications: Ambulatory Orders Medication Instructions Recorded Confirmed Ibuprofen [Motrin] 800 mg PO Q8H PRN #30 tablet 06/01/23 07/21/23 Cyclobenzaprine [Flexeril] 10 mg PO TID PRN #20 tablet 07/21/23 HYDROcod/ACETAM 5/325 [[place] 5/325] 1 - 2 ea PO Q6H PRN #14 tablet 07/21/23 Ketorolac [Toradol] 10 mg PO Q6H PRN #20 tablet 07/21/23 HYDROcod/ACETAM 5/325 [[place] 5/325] 1 - 2 tab PO Q6H PRN #15 tablet 02/11/24 - Allergies Allergies/Adverse Reactions: Allergies Allergy/AdvReac Type Severity Reaction Status Date / Time No Known Drug Allergies Allergy Verified 02/11/24 13:44 - Social History Does the pt smoke?: No Smoking Status: Never smoker Does the pt drink ETOH?: Yes Does the pt have substance abuse?: No - Immunizations Immunizations are current?: Yes Immunizations: TDAP current <10years - POLST Patient has POLST: No PD ED PE NORMAL - Vitals Vital signs reviewed: Yes - General General: Alert and oriented X 3, No acute distress - Neck Neck: No bony TTP - Extremities Extremities: Other (R ANKLE IS NTTP ANTERIOR OR OVER EITHER MALLEOLUS. THERE IS SOME TTP OVER ACHILLES AND SUPERIOR/POSTERIOR CALCANEUS.) - Neuro Neuro: Alert and oriented X 3 Results - Vitals Vitals: Vital Signs - 24 hr 02/11/24 13:40 Temperature 36.6 C Heart Rate 98 Respiratory 20 Rate Blood Pressure 179/98 H O2 Saturation 98 Oxygen O2 Source Room air - Rads (name of study) R ANKLE XR Relevant Findings:: Final report received, EMP independent interpretation of test PD Medical Decision Making - ED course ED course: THERE IS A CALCIFICATION ANTERIORLY ON XR, BUT HE IS COMPLETELY NONTENDER THERE AND LOOKS WELL CORTICATED, SO SUSPECT OLD. MORE PAIN/TTP OF ACHILLES. HIS LYN TEST IS FUNCTIONAL BUT PAINFUL. WILL PLACE IN BOOT AND HE HAS MRI IN A FEW DAYS. Departure - Departure Disposition: Home, Self Care Clinical Impression: Achilles tendon injury Condition: Good Record reviewed to determine appropriate education?: Yes Instructions: ED Sprain Ankle W X Ray Prescriptions: HYDROcod/ACETAM 5/325 [[place] 5/325] 1 - 2 tab PO Q6H PRN #15 tablet PRN Reason: Pain Comments: I SENT YOUR PRESCRIPTION TO [facility] IN [place]. DISCUSSED, I SEE A SMALL CALCIFICATION IN THE FRONT OF THE ANKLE, BUT THIS IS NOT WHERE YOUR PAIN/TENDERNESS IS, SO DOUBT THAT IS THE TRUE PROBLEM. WEAR THE BOOT WHEN UP AND AROUND UNTIL MRI RESULTS. KEEP APPOINTMENT FOR MRI WEDNESDAY. Forms: Activity restrictions
[2024-02-11] MEDS: HYDROcod/ACETAM 5/325 MG TABLET PO STA (15:04)
== END 2024-02-11 15:11 | disposition home or self-care (01) ==
LOC: ED 13:03
DX: S86.001A Unspecified injury of right Achilles tendon, initial encounter (principal); W10.9XXA Fall (on) (from) unspecified stairs and steps, initial encounter; Z79.899 Other long term (current) drug therapy
CPT/HCPCS: 73610; 99283; 99284; A9270

== ENCOUNTER 2024-02-14 17:28 | Emergency (ER) | payer OTHER ==
--- NOTE | 2024-02-14 17:50 | ED Physician Documentation ---
PD HPI LOWER EXT INJURY - Stated complaint Stated Complaint: R ANKLE PX - Chief complaint Chief Complaint: Ext Problem - History obtained from History obtained from: Patient - Additional information Additional information: He had an injury of his right ankle consistent with probably an Achilles tendon injury a few weeks ago. I saw him again about 4 days ago as his pain was out of control and prescribed hydrocodone which has not been helpful and the pain is still very severe. No new injury. PD PAST MEDICAL HISTORY - Past Medical History Cardiovascular: None Respiratory: Asthma Neuro: None Endocrine/Autoimmune: None GI: None : None HEENT: None Psych: None Musculoskeletal: None Derm: None - Past Surgical History Past Surgical History: No General: Appendectomy HEENT: Tonsil/Adenoidectomy - Present Medications Home Medications: Ambulatory Orders Medication Instructions Recorded Confirmed Ibuprofen [Motrin] 800 mg PO Q8H PRN #30 tablet 06/01/23 07/21/23 Cyclobenzaprine [Flexeril] 10 mg PO TID PRN #20 tablet 07/21/23 HYDROcod/ACETAM 5/325 [[place] 5/325] 1 - 2 ea PO Q6H PRN #14 tablet 07/21/23 Ketorolac [Toradol] 10 mg PO Q6H PRN #20 tablet 07/21/23 HYDROcod/ACETAM 5/325 [[place] 5/325] 1 - 2 tab PO Q6H PRN #15 tablet 02/11/24 Gabapentin [Neurontin] 300 mg PO TID #30 cap 02/14/24 Ketorolac [Toradol] 10 mg PO Q6H PRN #20 tablet 02/14/24 Oxycodone HCl/Acetaminophen 1 - 2 each PO Q6H PRN #20 tablet 02/14/24 [Percocet 5-325 mg Tablet] - Allergies Allergies/Adverse Reactions: Allergies Allergy/AdvReac Type Severity Reaction Status Date / Time No Known Drug Allergies Allergy Verified 02/14/24 17:31 - Social History Does the pt smoke?: No Smoking Status: Never smoker Does the pt drink ETOH?: Yes Does the pt have substance abuse?: No - Immunizations Immunizations are current?: Yes Immunizations: TDAP current <10years - POLST Patient has POLST: No PD ED PE NORMAL - Vitals Vital signs reviewed: Yes - General General: Alert and oriented X 3, No acute distress - Extremities Extremities: Other (Tender over the calcaneus and distal Achilles tendon. Good perfusion of the right foot. No deformity. No anterior or lateral or medial ankle tenderness.) - Neuro Neuro: Alert and oriented X 3, Normal speech - Psych Psych: Normal mood, Normal affect Results - Vitals Vitals: Vital Signs - 24 hr 02/14/24 17:31 Temperature 36.8 C Heart Rate 100 Respiratory 16 Rate Blood Pressure 160/97 H O2 Saturation 99 Oxygen O2 Source Room air PD Medical Decision Making - ED course ED course: Mah-jo-dnvggiw pain with 2 negative x-rays (he actually had a calcification on the last x-ray but his pain is not where that calcification is.) Departure - Departure Disposition: 01 Home, Self Care Clinical Impression: Achilles tendon injury Condition: Good Record reviewed to determine appropriate education?: Yes Instructions: ED Tendon Rupture Achilles Prescriptions: Gabapentin [Neurontin] 300 mg PO TID #30 cap Oxycodone HCl/Acetaminophen [Percocet 5-325 mg Tablet] 1 - 2 each PO Q6H PRN #20 tablet PRN Reason: pain Ketorolac [Toradol] 10 mg PO Q6H PRN #20 tablet PRN Reason: pain Comments: I sent your prescription electronically to the [facility] in [place]. No drinking or driving with the gabapentin or the oxycodone. Follow-up for MRI on as scheduled. Return for worsening symptoms. I am prescribing a short course of narcotic pain medication for you. These are potentially dangerous and addictive medications that should be used carefully. These medications may constipate you. Take an [id number]-[id number] stool softener (docusate) twice daily with plenty of water while taking these medications. If you go 24 hours without a bowel movement, take [id number] miralax, per package instructions. Do not drink or drive while taking these medications. If you received narcotic or sedating medications while in the emergency department, do not drive for 24 hours. Store this medication in a safe, secure place and out of reach of children. It is a violation of federal law to give or sell this medication to another person or to use in a manner other than prescribed. The ED will not refill narcotic prescriptions, including prescriptions lost or stolen. To dispose of unwanted medications: 1. [facility]'s Office provides a drop box for medication in pill form only (no liquids) 8:00 am to 4:30 p.m. Wednesday-Wednesday in the lobby of the [facility], [address] Empty pills into ziplock bag before disposal. Call [phone] for information. 2.[facility] is a free service available to all [facility] residents. Go to [email or web address] Note that many narcotic pain relievers also contain Tylenol/acetaminophen. Please ensure that your total dose of acetaminophen from all sources does not exceed 3 g (3000 mg) per day.
[2024-02-14 17:51] VITALS: BP 160/97; O2SAT 99
[2024-02-14] MEDS: KETOROLAC 60 MG/2 ML VIAL IM STA (17:52)
[2024-02-14] MEDS: oxyCODONE 5 MG TABLET PO STA (17:52)
[2024-02-14] MEDS: GABAPENTIN 100 MG CAPSULE PO STA (17:52)
== END 2024-02-14 18:16 | disposition home or self-care (01) ==
LOC: ED 17:28
DX: S86.001A Unspecified injury of right Achilles tendon, initial encounter (principal); X50.9XXA Other and unspecified overexertion or strenuous movements or postures, initial encounter; J45.909 Unspecified asthma, uncomplicated; Z79.899 Other long term (current) drug therapy
CPT/HCPCS: 96372; 99283; A9270

== ENCOUNTER 2024-02-17 09:04 | Outpatient (CLI) | payer OTHER ==
--- NOTE | 2024-02-17 13:13 | MRI Report ---
PROCEDURE: Ankle RT WO INDICATIONS: HEEL INJURY TECHNIQUE: Noncontrast sagittal T1 spin echo and T2 fast spin echo with fat saturation, axial proton density fas t spin echo and T2 fast spin echo with fat saturation, coronal T1 spin echo and T2 fast spin echo wit h fat saturation through the ankle/hindfoot. COMPARISON: Right ankle radiograph dated 02/11/2024 and 01/24/2024. FINDINGS: Image quality: Excellent. Bones and joints: No bone marrow contusions or fractures. No hindfoot coalitions. No osteochondral injuries of the talar dome. Small amount of tibiotalar joint effusion is seen, no loose bodies. Medial structures: The posterior tibialis, flexor digitorum longus, and flexor hallucis longus tendo ns are intact. The posterior tibial neurovascular bundle appears normal within the tarsal tunnel, wi thout extrinsic mass effect. The deltoid ligament and spring ligament are intact. Lateral structures: The anterior talofibular, calcaneofibular, and posterior talofibular ligaments a ppear intact. More superiorly, the anterior and posterior tibiofibular ligaments appear normal, as i s the intermalleolar ligament. The tibiofibular syndesmosis is normal in width at 2 mm or less. The peroneus longus and brevis tendons demonstrate normal location and morphology. Adjacent bony perone al tubercle and retrotrochlear prominence are normal in size. The sinus tarsi demonstrates normal fa tty signal, without edema, fibrosis, or cyst formation. Visualized sinus tarsi components (cervical ligament, interosseous talocalcaneal ligament, roots of the inferior extensor retinaculum) appear nor mal. Anterior structures: The tibialis anterior, extensor hallucis longus, and extensor digitorum longus tendons appear intact. Thickened the dorsal tibiotalar ligament is noted. Posterior and plantar structures: Achilles tendon is mildly thickened at its posterior calcaneal ins ertion. Medial and lateral bands of the plantar fascia are of normal thickness. No abductor digiti q uinti muscle atrophy to suggest Rizzo neuropathy. IMPRESSION: 1. No marrow edema. No fracture or dislocation. No osteochondral injuries of talar dome. Small joint effusion, no loose bodies. 2. Mildly thickened the distal Achilles tendon at its posterior calcaneal insertion suggestive of low -grade tendinosis. No Achilles tendon rupture. Rest of the ankle tendons are intact. 3. Medial and lateral ankle ligaments are intact. Reviewed by: Ed Freeman MD on 02/17/2024 1:12 PM PDT Approved by: Ed Freeman MD on 02/17/2024 1:12 PM PDT Station ID: [id number]
== END 2024-02-17 09:05 | disposition home or self-care (01) ==
LOC: DI 09:04
PROVIDERS: ATTEND Nurse Practitioner Family
DX: M79.671 Pain in right foot (principal); M25.471 Effusion, right ankle

== ENCOUNTER 2024-05-08 20:04 | Emergency (ER) | payer OTHER ==
--- NOTE | 2024-05-08 20:13 | ED Physician Documentation ---
PD HPI BACK PAIN - Stated complaint Stated Complaint: BACK INJ - Chief complaint Chief Complaint: Back Pain - Additional information Additional information: 33-year-old male with chronic upper back pain presents emergency department for left upper back pain flare. Patient says that he has recently had an MRI and is going to be having more MRIs soon for his upper back pain he said that he took his Toradol that he has at home about 20 minutes ago with little to no relief and called a nurse line and they told him to come to the ER for further evaluation. He says that he was walking and lost his balance but grabbed onto a bar and feels like he really strained his trapezius region. No nausea vomiting no fall no actual trauma to the left upper back itself. No fevers or chills no new weakness. PD PAST MEDICAL HISTORY - Past Medical History Past Medical History: No Cardiovascular: None Respiratory: Asthma Neuro: None Endocrine/Autoimmune: None GI: None : None HEENT: None Psych: None Musculoskeletal: None Derm: None - Past Surgical History Past Surgical History: No General: Appendectomy HEENT: Tonsil/Adenoidectomy - Present Medications Home Medications: Ambulatory Orders Medication Instructions Recorded Confirmed Ibuprofen [Motrin] 800 mg PO Q8H PRN #30 tablet 06/01/23 07/21/23 Cyclobenzaprine [Flexeril] 10 mg PO TID PRN #20 tablet 07/21/23 HYDROcod/ACETAM 5/325 [[place] 5/325] 1 - 2 ea PO Q6H PRN #14 tablet 07/21/23 Ketorolac [Toradol] 10 mg PO Q6H PRN #20 tablet 07/21/23 HYDROcod/ACETAM 5/325 [[place] 5/325] 1 - 2 tab PO Q6H PRN #15 tablet 02/11/24 Gabapentin [Neurontin] 300 mg PO TID #30 cap 02/14/24 Ketorolac [Toradol] 10 mg PO Q6H PRN #20 tablet 02/14/24 Oxycodone HCl/Acetaminophen 1 - 2 each PO Q6H PRN #20 tablet 02/14/24 [Percocet 5-325 mg Tablet] Ondansetron Odt [Zofran Odt] 4 mg TL Q6H PRN #10 tablet 05/08/24 tiZANidine [Zanaflex] 4 mg PO Q8H PRN #20 tablet 05/08/24 - Allergies Allergies/Adverse Reactions: Allergies Allergy/AdvReac Type Severity Reaction Status Date / Time No Known Drug Allergies Allergy Verified 05/08/24 20:13 - Social History Does the pt smoke?: No Smoking Status: Never smoker Does the pt drink ETOH?: Yes Does the pt have substance abuse?: No - Immunizations Immunizations are current?: Yes Immunizations: TDAP current <10years - POLST Patient has POLST: No PD ED PE NORMAL - Vitals Vital signs reviewed: Yes - General General: Alert and oriented X 3, No acute distress, Well developed/nourished - Derm Derm: Normal color, Warm and dry, No rash - Extremities Extremities: Other (pt seen moving BUE without difficulty.) - Neuro Neuro: Alert and oriented X 3, impregnator carbon products 2-12 intact, No motor deficit, No sensory deficit, Normal speech - Free text exam Free text exam: Neck and back are without deformity, external skin changes, or signs of trauma. Curvature of the cervical, thoracic, and lumbar spine are within normal limits. Bony features of the shoulders and hips are of equal height bilaterally. Posture is upright, gait is smooth, steady, and within normal limits. Tenderness to the left upper trapezius, pt seen holding ice to left upper trapezius. Results - Vitals Vitals: Vital Signs - 24 hr 05/08/24 20:07 Temperature 36.8 C Heart Rate 100 Respiratory 16 Rate Blood Pressure 160/100 H O2 Saturation 100 Oxygen O2 Source Room air PD Medical Decision Making - ED course ED course: 33-year-old male presents emergency department for left upper back pain. Patient does report that this is a chronic upper back pain that he has had extensive workup done on recently. He has had a recent history of multiple ER visits. He was seen in [facility] May 05, 2024 then again on May 06, 2024 at [facility] emergency department [place] then again at [facility] on April 30, 2024 then again on April 29 at [facility] emergency department [facility] [place] then again in February and January twice at [facility] emergency department and has been prescribed a multitude of different opioids and benzos. He has been prescribed a total of 20 diazepam 5 mg tablets for the month of April a total of 21 pills of [place] for the month of April and within the month of February patient was prescribed a total of 35 pills of [place] and 30 pills of gabapentin. Patient immediately tells me upon arrival to the emergency department that he is unable to take muscle relaxers because it causes GI upset. Due to the chronic nature of the pain and patient's history of visual inspection was performed visual examination of the upper back was limited no palpation was conducted as patient was very guarded of his left upper back region. Upon visual examination trapezius muscles appear to be at equal height and patient is visualized using both left and right upper extremity without any difficulty and also has a smooth steady gait and able to walk without any difficulty. Patient was not in any acute distress and I informed the patient that unfortunately I did not feel comfortable prescribing opioids or benzos for him here in the emergency department due to the recent multitude of ER visits and multiple opioids and benzos prescribed to him. He was offered Zofran for his GI upset when taking muscle relaxers and I did send him a prescription of tizanidine to his preferred pharmacy and he was given a dose of tizanidine here in the emergency department patient says that his girlfriend was waiting for him in the car to drive him home. Pain management plan was discussed with the patient considering the history of recent drug-seeking behavior he was informed to apply ice 20 minutes at a time 1 hour off consider adding and heat given the chronic nature of his left upper back pain and to alternate between Tylenol and ibuprofen and to follow-up with his primary care provider if he is having chronic left upper back pain and that unfortunately he cannot continue to seek out different emergency departments for his upper back pain. Upon being informed that narcotic pain medications would not be prescribed the patient became visibly upset the patient raised his voice and expressed frustration with treatment plan efforts were made to explain the rationale behind decision to discuss alternative pain management options. Patient is safe for discharge at this time prescription sent to his preferred pharmacy. Departure - Departure Disposition: 01 Home, Self Care Clinical Impression: Upper back pain on left side, Acute on chronic back pain Instructions: ED Back Care Tips, ED Spasm Back No Trauma Prescriptions: tiZANidine [Zanaflex] 4 mg PO Q8H PRN #20 tablet PRN Reason: Pain >8 Ondansetron Odt [Zofran Odt] 4 mg TL Q6H PRN #10 tablet PRN Reason: Nausea / Vomiting Comments: The policy of this emergency department is to not give more than 3 prescriptions for narcotics or other controlled substances in any 1 year. You have already surpassed this benchmark and we cannot prescribe narcotics for you. I encourage you to follow up with your primary care physician or to establish care with a primary care physician for ongoing pain management. You are always welcome to seek emergency care here for this or new issues but there will likely be limitations in the prescription of narcotic pain medication. I sent a prescription of tizanidine to your preferred pharmacy on file you can take this up to 3 times a day as needed but you need to seek pain management with your primary care provider in the future. Discharge Date/Time: 05/08/24 21:25
[2024-05-08 20:19] VITALS: BP 160/100; O2SAT 100
[2024-05-08] MEDS: ONDANSETRON ODT 4 MG TABLET TL STA (21:19)
[2024-05-08] MEDS: tiZANidine 4 MG TABLET PO STA (21:19)
== END 2024-05-08 21:25 | disposition home or self-care (01) ==
LOC: ED 20:04
DX: M54.6 Pain in thoracic spine (principal); G89.29 Other chronic pain; J45.909 Unspecified asthma, uncomplicated
CPT/HCPCS: 99283; A9270; Q0162